=== PATIENT | female | born 1985 | race Caucasian/White ===

== ENCOUNTER 2018-02-01 13:28 | Emergency (ER) | payer OTHER ==
[~2018-02-01] VITALS: Ht 170.2 cm; Wt 94.8 kg
[~2018-02-01 13:28] MED LIST: ENDOCET 5-3251 EACH PO; IBUPROFEN800 MG PO; Motrin PO; NATALCARE RX1 TABLET PO; Percocet 5/325,Endoc PO; SERTRALINE HCL25 MG PO
[2018-02-01] MEDS ORDERED: AMITRIPTYLINE H10 MG PO (13:34)
[2018-02-01] MEDS ORDERED: BUPROPION XL150 MG PO (13:35)
[2018-02-01] MEDS ORDERED: VITAMIN B122500 MCG PO (13:35)
[2018-02-01 14:20] LABS: HEMOGLOBIN 12.6 G/DL (11.9-15.5); MCH 28.2 PG (29.0-34.0); MCHC 33.2 G/DL (30.0-36.0); PLATELET COUNT 215 K/uL (156-360); RBC DIS.WIDTH-CV 13.2 % (11.8-14.6); RBC DIS.WIDTH-SD 41.1 % (39-53); RED BLOOD COUNT 4.47 M/uL (3.80-5.20); WHITE BLOOD COUNT 9.6 K/uL (4.1-10.2)
[2018-02-01 14:31] LABS: CHLORIDE 103 mEq/L (99-109); SODIUM 137 mEq/L (136-147)
[2018-02-01 14:32] LABS: GLUCOSE 116 mg/dL (70-99)
[2018-02-01 14:36] LABS: GFR ESTIMATE (CALCULATED) > 59 mL/min/
[2018-02-01 14:37] LABS: UREA NITROGEN (BUN) 14 mg/dL (9-23)
[2018-02-01 14:44] LABS: QUANTITATIVE HCG < 4.0 MIU/ML
[2018-02-01 15:14] LABS: APPEARANCE SL.HAZY ((CLEAR)); BILIRUBIN NEGATIVE; BLOOD NEGATIVE; COLOR YELLOW ((YELLOW)); GLUCOSE (STRIP) NEGATIVE; KETONES NEGATIVE; LEUKOCYTES MODERATE; NITRITE NEGATIVE; PROTEIN (STRIP) NEGATIVE; SPECIFIC GRAVITY 1.014 (1.000-1.030); UROBILINOGEN 0.2 MG/DL (0.2-1.0)
[2018-02-01 15:24] LABS: TROP-I INTERPRETATION NEGATIVE; TROPONIN-I < 0.01 ng/mL (0.0-0.30)
[2018-02-01 15:33] LABS: BACTERIA RARE /HPF; EPITHELIAL CELLS 2+ /HPF; MUCUS 2+ /LPF; RED BLOOD CELLS 0-5 /HPF (0-5); UCUL ADDED? YES
[2018-02-01 15:37] LABS: ALBUMIN 4.5 g/dL (3.2-4.8)
[2018-02-01 15:40] LABS: TOTAL PROTEIN 7.2 g/dL (6.4-8.3)
[2018-02-01 15:41] LABS: TOTAL BILIRUBIN 0.4 mg/dL (0.0-1.0)
[2018-02-01 15:42] LABS: ALKALINE PHOSPHATASE 70 IU/L (3-129)
[2018-02-01 15:45] LABS: AST (GOT) 17 IU/L (2-34); DIRECT BILIRUBIN 0.1 mg/dL (0.0-0.3)
[2018-02-01 15:46] LABS: ALT (GPT) 15 IU/L (3-49); LIPASE 19 U/L (1.0-51.0)
[2018-02-01 18:19] VITALS: BP 140/85
== END 2018-02-01 18:20 | disposition home or self-care (01) ==
LOC: EME 13:28
PROVIDERS: Emergency Medicine
DX: R55 Syncope and collapse (principal); R10.13 Epigastric pain; F32.9 Major depressive disorder, single episode, unspecified
CPT/HCPCS: 71046; 74177; 80048; 80076; 81003; 83690; 84484; 84702; 85027; 87086; 93005; 99281; 99285; J7030

== ENCOUNTER → 2018-03-24 | Outpatient (CLI) | payer OTHER ==
[~2018-03-24] VITALS: Ht 171.4 cm; Wt 94.3 kg
[~2018-03-24] MED LIST changes: +AMITRIPTYLINE H10 MG PO; +BUPROPION XL150 MG PO; +ELAVIL10 MG PO; +KEFLEX500 MG PO; +OMEPRAZOLE40 M1 PO; +VITAMIN B122500 MCG PO; +WELLBUTRIN XL150 MG PO
== END | disposition home or self-care (01) ==
LOC: AMB 03-06 08:30 → OPR 03-06 10:00 → AMB 08:49
PROC: 0DB98ZZ Excision of Duodenum, Via Natural or Artificial Opening Endoscopic (ICD-10-PCS; principal; 2018-03-24)
PROC: 0DB68ZX Excision of Stomach, Via Natural or Artificial Opening Endoscopic, Diagnostic (ICD-10-PCS; principal; 2018-03-24)
DX: K29.70 Gastritis, unspecified, without bleeding (principal); Q63.1 Lobulated, fused and horseshoe kidney; E66.9 Obesity, unspecified; Z68.32 Body mass index [BMI] 32.0-32.9, adult; E53.8 Deficiency of other specified B group vitamins; Z82.49 Family history of ischemic heart disease and other diseases of the circulatory system
CPT/HCPCS: 88305; 88342 TC; J2405